=== PATIENT | male | born 1965 | race Caucasian/White ===

== ENCOUNTER 2020-06-24 11:48 | Emergency (ER) | payer MEDICAID, SELFPAY ==
[2020-06-24 14:20] VITALS: BP 163/91; PULSE 92; RESP 18; TEMP 37; O2SAT 97; BMI 24.3
--- NOTE | 2020-06-24 14:25 | XR_ITS ---
EXAMINATION: XR FOOT, LEFT CLINICAL INFORMATION: Infected diabetic ulcer medial side left foot COMPARISON: None TECHNIQUE: AP, lateral, and oblique views of the left foot. FINDINGS: There is soft tissue abnormality along the medial aspect of first MTP joint. No bony erosive changes or periosteal thickening. The ankle mortise and subtalar joints are normal. XR/XR foot LT min 3V IMPRESSION: Soft tissue swelling along the medial aspect of first MTP joint but no bony erosive changes or periosteal thickening to suspect osteomyelitis. There is no gas either to suspect any abscess in the soft tissues.
--- NOTE | 2020-06-24 14:28 | ED_ITS ---
HPI - General Adult General Chief complaint: General Medical Stated complaint: diabetic complications Time Seen by Provider: 06/24/20 14:17 Source: patient Mode of arrival: ambulatory Limitations: no limitations History of Present Illness HPI narrative: Patient comes to the emergency room complaining of left-sided foot ulcer. Patient states it started as a callus approximately 1 month ago, patient was in [place] and came back a few days ago when he returned. Patient states for the last 2 days the ulcer popped, has been oozing purulent foul-smelling material. Patient has not been seen by the wound clinic for this ulcer. Patient denies fever chills Onset (ago): day(s) Related Data Previous Rx's Medication Instructions Recorded cephalexin [Keflex] 500 mg PO BID #20 cap 06/24/20 doxycycline monohydrate 100 mg PO BID #20 cap 06/24/20 Allergies Allergy/AdvReac Type Severity Reaction Status Date / Time No Known Allergies Allergy Unverified 05/19/20 18:41 [No Known Allergies*] Review of Systems Review of Systems: Constitutional : No Weight loss, No Fever, No Chills, No Night Sweats, No Fatigue, No Malaise ENT/Mouth : No Hearing loss, No Ear Pain, No Nasal Congestion, No Sinus Pain, No Hoarseness, No sore throat, No Rhinorrhea, No Swallowing Difficulty Eyes: No Eye Pain, No Swelling, No Redness, No Foreign Body, No Discharge, No Vision Changes Cardiovascular : No Chest Pain, No SOB, No Dyspnea on Exertion, No Orthopnea, No Edema, No Palpitations Respiratory : No Cough, No Sputum, No Wheezing, No Smoke Exposure, No Dyspnea Gastrointestinal : No Nausea, No Vomiting, No Diarrhea, No Constipation, No abdominal Pain, No Hematochezia, No Melena Genitourinary : no irregular bleeding, No Dysuria, No Urinary Frequency, No Hematuria, No Urinary Incontinence, No Urgency, No Flank Pain, No Urinary Flow Changes, No Hesitancy Musculoskeletal : No joint pain, No Myalgias, No Joint Swelling Skin : purulent, foul-smelling ulcer on the medial aspect of the left Neuro : No Weakness, No Numbness, No Paresthesias, No Loss of Consciousness, No Dizziness, No Headache Psych : No Anxiety/Panic, No Depression, No SI/HI/AH/VH, No Social Issues, Heme/Lymph: No Bruising, No Bleeding,No Lymphadenopathy Endocrine : No Polyuria, No Polydipsia, No Temperature Intolerance [facility] Past Medical History Medical History Atherosclerotic heart disease [place] coronary artery w/angina pectoris BPH (benign prostatic hyperplasia) Chronic kidney disease (CKD) stage G2/A1, mildly decreased glomerular filtration rate (GFR) between 60-89 mL/min/1.73 square meter and albuminuria creatinine ratio less than 30 mg/g Dependence on respirator [ventilator] status Diverticulosis GERD (gastroesophageal reflux disease) Hypothyroid Polyneuropathy Proteinuria PVD (peripheral vascular disease) Type 2 diabetes mellitus Social History Social History Alcohol intake: never Smoked in Last 30 Days: No Use of substances other than those prescribed or required for medical reasons: No Advance Directives: No Advance Directives Information Provided: No Physical Exam Vital Signs: Vital Signs: Vital Signs Temp Pulse Resp BP Pulse Ox 06/24/20 15:56 97.9 F 89 18 158/86 H 98 06/24/20 14:20 98.6 F 92 18 163/91 H 97 Body Mass Index 24.3 Appearance: Alert. Oriented X3. No acute distress. Eyes: Pupils equal, round and reactive to light. ENT: Pharynx normal. Neck: Normal inspection. Neck supple. No lymph nodes noted. No crepitus CVS: Normal heart rate and rhythm. Pulses normal. Normal S1 and S2 Respiratory: No respiratory distress. Breath sounds normal. No Wheezing. No rales Abdomen: Soft and nontender. No rigidity. No distention. good BS x4 Skin: purulent, foul-smelling diabetic ulcer in the medial aspect of the left foot Extremities: see above, left foot with close to nonpitting edema Neuro: Oriented X 3. No motor deficit. No sensory deficit. Moving all extermities. No slurred speech. Course Course Course Narrative: I discussed the labs with the patient, patient will be referred to the wound clinic. Patient will be discharged on 2 antibiotics. Discussed with the patient that if he has any new symptoms, he needs to return to the emergency room. Patient's blood glucose is 413, he will be given insulin, point of care rechecked and improved, he will be discharged home sign out given to Dr. Mckeon Medical Decision Making Lab Data Result diagrams: 06/24/20 15:42 06/24/20 15:42 Labs: Lab Results 06/24/20 06/24/20 06/24/20 Range/Units 15:42 15:42 15:43 WBC 8.3 (4.8-10.8) X10*3/uL RBC 4.93 (4.60-5.80) X10*6/uL Hgb 13.4 L (14.0-18.0) g/dl Hct 40.9 L (42-52) % MCV 83.0 (80-98) fL MCH 27.2 (27.0-33.0) pg MCHC 32.8 (31.0-36.0) g/dl RDW 12.3 (11.0-16.0) % Plt Count 252 (160-400) X10*3/uL MPV 9.3 L (9.4-12.4) fL Immature Gran % (Auto) 0.5 H (0.0-0.4) % Neut % (Auto) 56.9 (45-73) % Lymph % (Auto) 33.8 (20-40) % [place] % (Auto) 6.4 (2-11) % Eos % (Auto) 2.0 (0-4) % Baso % (Auto) 0.4 (0-2) % Lymph # (Auto) 2.8 (1.2-4.9) X10*3/uL [place] # (Auto) 0.5 (0.1-1.2) X10*3/uL Eos # (Auto) 0.2 (0.0-0.4) X10*3/uL Baso # (Auto) 0.0 (0.0-0.2) X10*3/uL Abs Immat Gran (auto) 0.04 H (0.00-0.03) X10*3/uL Absolute Neuts (auto) 4.7 (2.0-8.3) X10*3/uL Absolute Nucleated RBC 0.000 (0.0-0.012) X10*3/uL Nucleated RBC % (auto) 0.0 (0.0-0.2) /100WBC Sodium 135 (135-145) mmol/L Potassium 4.7 (3.3-5.1) mmol/l Chloride 98 (96-108) mmol/L Carbon Dioxide 30 H (22-29) mmol/L Anion Gap 12 (12-20) BUN 20 H (9-16) mg/dL Creatinine 1.17 (0.5-1.4) mg/dL Estim Creat Clear Calc 69.0 Estimated GFR > 60 Random Glucose 413 H* (60-115) mg/dL Lactic Acid 0.9 (0.5-2.0) mmol/L Calcium 8.9 (8.4-10.2) mg/dL Discharge Plan Discharge Clinical Impression: Acute hyperglycemia Diabetic foot ulcer Qualifiers: Diabetic foot ulcer location: unspecified part of foot Diabetes mellitus type: type 2 Laterality: left Non-pressure ulcer stage: unspecified non-pressure ulcer stage Qualified Code(s): E11.621 - Type 2 diabetes mellitus with foot ulcer Patient Disposition: Home, Self-Care Instructions: Foot Care for People with Diabetes (ED), Diabetic Foot Ulcers (ED) Additional Instructions: please call the wound clinic to schedule an appointment. If you have any fever, worsening symptoms, any new symptoms, please return to the emergency room. Please follow-up with your primary care physician tomorrow. If you have any worsening or new symptoms, please return to the emergency room or call 911 Prescriptions: New doxycycline monohydrate 100 mg capsule 100 mg PO BID Qty: 20 RF: 0 cephalexin [Keflex] 500 mg capsule 500 mg PO BID Qty: 20 RF: 0
[2020-06-24 15:49] LABS: MANUAL DIFF FLAG NO
[2020-06-24 15:53] LABS: Basophils Percent Auto 0.4 % (0-2); Eosinophils Absolute Auto 0.2 X10*3/uL (0.0-0.4); Hematocrit 40.9 % (42-52); Hemoglobin 13.4 g/dl (14.0-18.0); Imm Gran Abs Auto 0.04 X10*3/uL (0.00-0.03); Imm Gran Pct Auto 0.5 % (0.0-0.4); Lymphocytes Absolute Auto 2.8 X10*3/uL (1.2-4.9); Lymphocytes Percent Auto 33.8 % (20-40); Mean Corpuscular HGB Conc 32.8 g/dl (31.0-36.0); Mean Corpuscular Hemoglobin 27.2 pg (27.0-33.0); Mean Platelet Volume 9.3 fL (9.4-12.4); Monocytes Absolute Auto 0.5 X10*3/uL (0.1-1.2); Monocytes Percent Auto 6.4 % (2-11); Neutrophils Absolute Auto 4.7 X10*3/uL (2.0-8.3); Neutrophils Percent Auto 56.9 % (45-73); Platelet Count 252 X10*3/uL (160-400); Red Blood Count 4.93 X10*6/uL (4.60-5.80); Red Cell Distribution Width 12.3 % (11.0-16.0); White Blood Count 8.3 X10*3/uL (4.8-10.8)
[2020-06-24 15:56] VITALS: BP 158/86; PULSE 89; RESP 18; TEMP 36.6; O2SAT 98
[2020-06-24] MEDS: 0.9 % Sodium Chloride 1,000 ML 999 ML IVCONT (16:12)
[2020-06-24] MEDS: Piperacillin Sodium/Tazobactam 3.375 GM in 0.9 % Sodium Chloride 50 ML IV (16:13)
[2020-06-24 16:26] LABS: Lactic Acid 0.9 mmol/L (0.5-2.0)
[2020-06-24 16:39] LABS: Glucose Random 413 mg/dL (60-115)
[2020-06-24 16:40] LABS: Anion Gap 12 (12-20); Blood Urea Nitrogen 20 mg/dL (9-16); Calcium 8.9 mg/dL (8.4-10.2); Carbon Dioxide 30 mmol/L (22-29); Chloride 98 mmol/L (96-108); Estimated Glomerular Filt Rate > 60; Potassium 4.7 mmol/l (3.3-5.1); Sodium 135 mmol/L (135-145)
[2020-06-24 17:59] VITALS: PULSE 90; RESP 16; O2SAT 99
[2020-06-24] MEDS: Insulin Regular, Human 100 UNIT/ML 3 ML VIAL 10 UNIT IVPUSH (18:00)
[2020-06-24 18:51] LABS: Glucose, Whole Blood 247 mg/dL (60-115)
== END 2020-06-24 20:14 | disposition home or self-care (01) ==
PROVIDERS: Emergency Provider Emergency Medicine
DX: E11.621 Type 2 diabetes mellitus with foot ulcer (principal); E11.22 Type 2 diabetes mellitus with diabetic chronic kidney disease; E11.65 Type 2 diabetes mellitus with hyperglycemia; N18.2 Chronic kidney disease, stage 2 (mild)
CPT/HCPCS: 36415; 73630; 80048; 82947; 83605; 85025; 87040; 96365; 96375; 99284

== ENCOUNTER 2021-07-24 16:51 | Emergency (ER) | payer OTHER, SELFPAY ==
--- NOTE | ~2021-07-24 | CT_ITS ---
EXAMINATION: CT ABDOMEN AND PELVIS WITH CONTRAST CLINICAL INFORMATION: Left lower quadrant and suprapubic pain COMPARISON: Ultrasound abdomen 12/06/2014 TECHNIQUE: Multidetector volumetric images were obtained from the superior aspect of the liver through the pubic symphysis following administration 85 mL of Omnipaque 350 intravenous contrast. Sagittal and coronal reformatted images were obtained on the technologist's workstation. Oral contrast: No This CT examination was performed using dose optimization techniques as appropriate, variously including the following: *Automated exposure control *Adjustment of mA and/or kV according to patient size (this includes techniques or standardized protocols for targeted exams where dose is matched to indication/reason for exam; i.e. extremities or head) *Use of iterative reconstruction technique DLP : 622 mGy-cm FINDINGS: LUNG BASES: The visualized lung bases are unremarkable. LIVER, GALLBLADDER, AND BILIARY TREE: The liver is normal in size, shape, and attenuation. No focal hepatic lesion or biliary ductal dilatation is present. The gallbladder is unremarkable with no evidence of radiopaque gallstones, gallbladder wall thickening, or obvious pericholecystic inflammatory changes. PANCREAS: Unremarkable. SPLEEN: Unremarkable. ADRENAL GLANDS: Unremarkable. KIDNEYS AND URETERS: The kidneys are normal in size, shape, and attenuation. Bilateral benign Bosniak class I renal cysts are present. No solid renal masses are seen. No hydronephrosis, hydroureter, or calculi seen. No perinephric stranding. BLADDER: Unremarkable. GASTROINTESTINAL TRACT: A tiny hiatal hernia is present. Colonic diverticular changes most prominent in the sigmoid without diverticulitis. Moderate stool burden is present in the right colon as well as the rectum. The small and large bowel are otherwise unremarkable. The appendix is none seen but there is no evidence of appendicitis. ABDOMINAL WALL: No significant hernia is appreciated. LYMPH NODES: No retroperitoneal lymphadenopathy. VASCULAR: Unremarkable. PELVIC VISCERA: Prostate and seminal vesicles are unremarkable. OSSEOUS STRUCTURES: Unremarkable. CT/CT abdomen pelvis w con IMPRESSION: A definite etiology for the patient's left lower quadrant/suprapubic pain has not been found. Incidental findings described above. Fleischner guidelines were followed.
--- NOTE | 2021-07-24 17:08 | ECG_ITS ---
Test Reason : ABDOMINAL PAIN Blood Pressure : / mmHG Vent. Rate : 084 BPM Atrial Rate : 084 BPM P-R Int : 136 ms QRS Dur : 080 ms QT Int : 348 ms P-R-T Axes : 030 -13 070 degrees QTc Int : 411 ms Normal sinus rhythm Minimal voltage criteria for LVH, may be normal variant ( R in aVL ) Nonspecific T wave abnormality Abnormal ECG T wave inversion no longer evident in Anterolateral leads Referred By: Belinda Bowens Electronically Signed By:MADHAV GAONA MD
[2021-07-24 17:14] VITALS: BP 147/76; BP 164/94; PULSE 90; PULSE 92; RESP 16; TEMP 36.8; O2SAT 100; O2SAT 97; BMI 25.8
--- NOTE | 2021-07-24 17:14 | ED.ABDPAIN ---
HPI - Abdominal Pain General Chief Complaint: Abdominal Pain Stated Complaint: ABD PAIN Time Seen by Provider: 07/24/21 17:08 Source: patient Mode of arrival: ambulatory Limitations: no limitations History of Present Illness HPI narrative: This is a 56-year-old past medical history significant for BPH, CKD, CAD, PVD, GERD, diabetes presenting to the emergency department with 3 days of progressively worsening left lower quadrant, and suprapubic abdominal pain with associated nausea. Patient states that he has felt this pain before, last time he had this is diverticulitis. Patient also tells me that he has not had a bowel movement for 3 days, he usually has daily bowel movements. He feels as though his abdomen is distended, more than usual. He tells me he has been passing flatness but very little. He also reports decreased appetite. He states that the pain has gotten very severe, and constant in nature, he describes it as sharp pain. It does not radiate. He denies urinary changes, dysuria, urinary incontinence, back pain, chest pain, shortness of breath, fevers, chills, recent sick contacts. Patient's abdominal surgical history significant for an appendectomy when he was a child, no other abdominal surgeries. MD elicited complaint: abdominal pain Pertinent past history: diverticulitis Onset (ago): day(s) (3) Pain Consistency: constant Location: LLQ and suprapubic Severity: severe Pain scale (0-10): 10 Quality: sharp Radiation: none Migration to: no migration Exacerbating factors: nothing Relieving factors: nothing Associated symptoms: nausea Related Data Previous Rx's Medication Instructions Recorded cephalexin 500 mg capsule (Keflex) 500 mg PO BID #20 cap 06/24/20 doxycycline monohydrate 100 mg 100 mg PO BID #20 cap 06/24/20 capsule polyethylene glycol 3350 17 17 g PO DAILY #119 g 07/24/21 gram/dose oral powder (Miralax) Allergies Allergy/AdvReac Type Severity Reaction Status Date / Time No Known Allergies Allergy Verified 07/24/21 17:16 [No Known Allergies*] Review of Systems Review of Systems Constitutional : No Weight loss, No Fever, No Chills, No Fatigue, No Malaise ENT/Mouth : No sore throat, No Rhinorrhea Eyes: No Eye Pain, No Swelling, No Redness Cardiovascular : No Chest Pain, No SOB, No Dyspnea on Exertion, No Orthopnea, No Edema, No Palpitations Respiratory : No Cough, No Sputum, No Wheezing Gastrointestinal : + Nausea, No Vomiting, No Diarrhea, + Constipation, + abdominal Pain, No Hematochezia, No Melena Genitourinary : No Dysuria, No Urinary Frequency, No Hematuria, Musculoskeletal : No joint pain, No Myalgias, No Joint Swelling Skin : No Skin Lesions, No rash Neuro : No Weakness, No Numbness, No Dizziness, No Headache All other systems reviewed and are negative Physical Exam Vital Signs: Vital Signs: Last Vital Signs Temp 98.4 F 07/24/21 20:51 Pulse 89 07/24/21 20:51 Resp 18 07/24/21 20:51 BP 146/80 H 07/24/21 20:51 Pulse Ox 97 07/24/21 20:51 Body Mass Index 25.8 Appearance: Alert.? Oriented X3.? No acute distress.? Head: Normocephalic, atraumatic, no step-offs or deformities Eyes: Pupils equal, round and reactive to light.? ENT: Pharynx normal.? Neck: Normal inspection.? Neck supple.? CVS: Normal heart rate and rhythm.? Pulses normal.? Respiratory: No respiratory distress.? Breath sounds normal.? Abdomen: Soft, mildly distend, + tenderness to LLQ and suprapubic region Normoactive bowelsounds .? Skin: Skin warm and dry.? Normal skin color.? Normal skin turgor.? Extremities: No lower extremity edema.? No calf ttp. 5/5 strength to bilateral upper and lower extremities Back: No midline tenderness, no C-spine tenderness, full range of motion, no CVA tenderness bilaterally Neuro: Oriented X 3.? No motor deficit.? No sensory deficit. Course Reevaluation(s) Reevaluation #1: Labs show no leukocytosis, baseline anemia is noted. BUN is noted to be slightly elevated 27 when compared to previously 20 on June 24, 2021. Patient will be given fluids. Acetone is negative. Unlikely that this is DKA. Serology negative for COVID-19.CT scan pending Upon reevaluation patient reports he feels much better. Time: 19:07 Reevaluation #2: CT of the abdomen unable to define an etiology for patient's left lower quadrant/supra pubic discomfort. CT did note some incidental finding such as bilateral benign Bosniak class 1 renal cyst. They also noted a small hiatal hernia, colonic diverticular changes, not consistent with diverticulitis. And a moderate stool burden. Appendix was not seen, but there is no evidence of appendicitis. Patient's symptoms are likely secondary to constipation. At this time I will order Colace,Ehrhardt and MiraLax as patient has not taken anything at home for this. Time: 19:50 Reevaluation #3: Patient tells me he is feeling much better. He is safe for discharge home with PCP follow-up. At time of discharge put patient's vital signs are stable Time: 21:29 MDM - Abdominal Pain MDM Narrative Medical decision making narrative: 1720 This is a 56-year-old male past medical history significant for PVD, GERD, diabetes, coronary artery disease, BPH presenting to the emergency department with 3 days of progressively worsening left lower quadrant, suprapubic pain, nausea and constipation. Patient tells me he has been passing flatus. Past surgical history significant for appendectomy years ago. Denies fevers, chills, vomiting, chest pain, shortness of breath Upon physical examination patient is resting comfortably on the stretcher. Vital signs stable, noted to be slightly hypertensive. Lungs are clear to auscultation. S1-S2 appreciated free of murmurs. Abdomen soft, slightly distended, normoactive bowel sounds and tender to palpation in the left lower quadrant and suprapubic region. No CVA tenderness bilaterally. 5/5 strength upper and lower extremities. No lower extremity edema. Plan at this time is to obtain basic labs, urine, CT of the abdomen and pelvis, EKG, point of care, acetone, lipase, COVID. Will rule out DKA, diverticulitis, kidney stones, constipation, bowel obstruciton. Lab Data Result diagrams: 07/24/21 17:33 07/24/21 17:33 Labs: Lab Results 07/24/21 07/24/21 07/24/21 Range/Units 17:33 17:33 17:33 WBC 9.0 (4.8-10.8) X10*3/uL RBC 4.65 (4.60-5.80) X10*6/uL Hgb 13.2 L (14.0-18.0) g/dl Hct 39.7 L (42.0-52.0) % MCV 85.4 (80.0-98.0) fL MCH 28.4 (27.0-33.0) pg MCHC 33.2 (31.0-36.0) g/dl RDW 12.9 (11.0-16.0) % Plt Count 217 (160-400) X10*3/uL MPV 9.3 L (9.4-12.4) fL Immature Gran % (Auto) 0.3 (0.0-0.4) % Neut % (Auto) 64.8 (45-73) % Lymph % (Auto) 26.4 (20-40) % [place] % (Auto) 6.2 (2-11) % Eos % (Auto) 1.9 (0-4) % Baso % (Auto) 0.4 (0-2) % Lymph # (Auto) 2.4 (1.2-4.9) X10*3/uL [place] # (Auto) 0.6 (0.1-1.2) X10*3/uL Eos # (Auto) 0.2 (0.0-0.4) X10*3/uL Baso # (Auto) 0.0 (0.0-0.2) X10*3/uL Abs Immat Gran (auto) 0.03 (0.00-0.03) X10*3/uL Absolute Neuts (auto) 5.9 (2.0-8.3) x10*3/uL Absolute Nucleated RBC 0.000 (0.0-0.012) X10*3/uL Nucleated RBC % (auto) 0.0 (0.0-0.2) /100WBC Sodium 140 (135-145) mmol/L Potassium 4.2 (3.3-5.1) mmol/L Chloride 106 (96-108) mmol/L Carbon Dioxide 26 (22-29) mmol/L Anion Gap 12 (12-20) BUN 27 H (9-16) mg/dL Creatinine 0.99 (0.5-1.4) mg/dL Estim Creat Clear Calc 80.6 Estimated GFR > 60 Random Glucose 141 H D (60-115) mg/dL Calcium 9.7 D (8.4-10.2) mg/dL Magnesium 1.9 (1.6-2.6) mg/dL Total Bilirubin 0.4 (0.0-1.0) mg/dL AST 20 (5-37) U/L ALT 25 (0-40) U/L Alkaline Phosphatase 105 (39-117) U/L Total Protein 7.2 (6.5-8.0) g/dL Albumin 4.3 (3.5-5.0) g/dL Lipase 21 (8-78) U/L Acetone, Qual (Negative) COVID-19 ([facility]) Negative (Negative) COVID-19 Clin Com See Note 07/24/21 Range/Units 17:33 WBC (4.8-10.8) X10*3/uL RBC (4.60-5.80) X10*6/uL Hgb (14.0-18.0) g/dl Hct (42.0-52.0) % MCV (80.0-98.0) fL MCH (27.0-33.0) pg MCHC (31.0-36.0) g/dl RDW (11.0-16.0) % Plt Count (160-400) X10*3/uL MPV (9.4-12.4) fL Immature Gran % (Auto) (0.0-0.4) % Neut % (Auto) (45-73) % Lymph % (Auto) (20-40) % [place] % (Auto) (2-11) % Eos % (Auto) (0-4) % Baso % (Auto) (0-2) % Lymph # (Auto) (1.2-4.9) X10*3/uL [place] # (Auto) (0.1-1.2) X10*3/uL Eos # (Auto) (0.0-0.4) X10*3/uL Baso # (Auto) (0.0-0.2) X10*3/uL Abs Immat Gran (auto) (0.00-0.03) X10*3/uL Absolute Neuts (auto) (2.0-8.3) x10*3/uL Absolute Nucleated RBC (0.0-0.012) X10*3/uL Nucleated RBC % (auto) (0.0-0.2) /100WBC Sodium (135-145) mmol/L Potassium (3.3-5.1) mmol/L Chloride (96-108) mmol/L Carbon Dioxide (22-29) mmol/L Anion Gap (12-20) BUN (9-16) mg/dL Creatinine (0.5-1.4) mg/dL Estim Creat Clear Calc Estimated GFR Random Glucose (60-115) mg/dL Calcium (8.4-10.2) mg/dL Magnesium (1.6-2.6) mg/dL Total Bilirubin (0.0-1.0) mg/dL AST (5-37) U/L ALT (0-40) U/L Alkaline Phosphatase (39-117) U/L Total Protein (6.5-8.0) g/dL Albumin (3.5-5.0) g/dL Lipase (8-78) U/L Acetone, Qual Negative (Negative) COVID-19 ([facility]) (Negative) COVID-19 Clin Com Critical Care Time Critical Care Time Critical Care Time: No Discharge Plan Discharge Clinical Impression: Abdominal pain, Nausea, Constipation, Renal cyst, Hiatal hernia Patient Disposition: Home, Self-Care Instructions: Hiatal Hernia (ED), Constipation (ED), Acute Abdominal Pain (ED), Abdominal Pain (ED) Additional Instructions: Take your medications as prescribed. Your CT scan showed bilateral benign renal cysts and colonic diverticular changes but not diverticulitis. Take Colace an over the counter medicine as needed for constipation. Drink plenty of fluids and increase fiber intake. Follow-up with your primary care provider this week. Return to the emergency department with new or worsening symptoms. In case of emergency call 911 Prescriptions: New polyethylene glycol 3350 [Miralax] 17 gram/dose powder 17 g PO DAILY Qty: 119 RF: 0 No Action doxycycline monohydrate 100 mg capsule 100 mg PO BID Qty: 20 RF: 0 cephalexin [Keflex] 500 mg capsule 500 mg PO BID Qty: 20 RF: 0 Referrals: Physician,Unknown J [Primary Care Provider] - 2 days Stand Alone Forms: Work/School Release Print Language: Serbian [facility] Past Medical History Attestation statement: The following information was validated with the patient. Source: old records reviewed and nursing notes reviewed Medical History Atherosclerotic heart disease [place] coronary artery w/angina pectoris BPH (benign prostatic hyperplasia) Chronic kidney disease (CKD) stage G2/A1, mildly decreased glomerular filtration rate (GFR) between 60-89 mL/min/1.73 square meter and albuminuria creatinine ratio less than 30 mg/g Dependence on respirator [ventilator] status Diverticulosis GERD (gastroesophageal reflux disease) Hypothyroid Polyneuropathy Proteinuria PVD (peripheral vascular disease) Type 2 diabetes mellitus Social History Social History Alcohol intake: never Patient Tobacco Use Status: Never used Tobacco Use of substances other than those prescribed or required for medical reasons: No Advance Directives: No Advance Directives Information Provided: No
[2021-07-24 17:38] LABS: MANUAL DIFF FLAG NO
[2021-07-24] MEDS: 0.9 % Sodium Chloride 1,000 ML 999 ML IV (17:39)
[2021-07-24] MEDS: Ketorolac Tromethamine 15 MG/ML VIAL 30 MG IVPUSH (17:39)
[2021-07-24] MEDS: ondansetron HCL 4 MG/2 ML VIAL IVPUSH (17:39)
[2021-07-24 17:40] LABS: Basophils Percent Auto 0.4 % (0-2); Eosinophils Absolute Auto 0.2 X10*3/uL (0.0-0.4); Eosinophils Percent Auto 1.9 % (0-4); Hematocrit 39.7 % (42.0-52.0); Hemoglobin 13.2 g/dl (14.0-18.0); Imm Gran Abs Auto 0.03 X10*3/uL (0.00-0.03); Imm Gran Pct Auto 0.3 % (0.0-0.4); Lymphocytes Absolute Auto 2.4 X10*3/uL (1.2-4.9); Lymphocytes Percent Auto 26.4 % (20-40); Mean Corpuscular HGB Conc 33.2 g/dl (31.0-36.0); Mean Corpuscular Hemoglobin 28.4 pg (27.0-33.0); Mean Corpuscular Volume 85.4 fL (80.0-98.0); Mean Platelet Volume 9.3 fL (9.4-12.4); Monocytes Absolute Auto 0.6 X10*3/uL (0.1-1.2); Monocytes Percent Auto 6.2 % (2-11); Neutrophils Absolute Auto 5.9 x10*3/uL (2.0-8.3); Neutrophils Percent Auto 64.8 % (45-73); Platelet Count 217 X10*3/uL (160-400); Red Blood Count 4.65 X10*6/uL (4.60-5.80); Red Cell Distribution Width 12.9 % (11.0-16.0)
[2021-07-24 17:55] LABS: COVID-19 Test Negative (Negative); IDNOW Serial# 08D9AD1C
[2021-07-24 18:00] LABS: Acetone, serum QL Negative (Negative); Alanine Aminotransferase 25 U/L (0-40); Albumin Level 4.3 g/dL (3.5-5.0); Alkaline Phosphatase 105 U/L (39-117); Anion Gap 12 (12-20); Aspartate Amino Transferase 20 U/L (5-37); Bilirubin Total 0.4 mg/dL (0.0-1.0); Blood Urea Nitrogen 27 mg/dL (9-16); Calcium 9.7 mg/dL (8.4-10.2); Carbon Dioxide 26 mmol/L (22-29); Chloride 106 mmol/L (96-108); Creatinine Clr Calc Pharmacy 80.6; Estimated Glomerular Filt Rate > 60; Glucose Random 141 mg/dL (60-115); Lipase 21 U/L (8-78); Magnesium 1.9 mg/dL (1.6-2.6); Potassium 4.2 mmol/L (3.3-5.1); Sodium 140 mmol/L (135-145); Total Protein 7.2 g/dL (6.5-8.0)
[2021-07-24] MEDS: iohexoL 350 MG/ML 100 ML INFUS..BTL IV (18:40)
[2021-07-24] MEDS: polyethylene glycoL 3350 17 GM POWD.PACK PO (20:49)
[2021-07-24] MEDS: Docusate Sodium 100 MG CAPSULE PO (20:49)
[2021-07-24] MEDS: Sennosides 8.6 MG TABLET 17.2 MG PO (20:49)
[2021-07-24 20:51] VITALS: BP 146/80; PULSE 89; RESP 18; TEMP 36.9; O2SAT 97
== END 2021-07-24 22:01 | disposition home or self-care (01) ==
PROVIDERS: Physician Assistant; Emergency Provider Emergency Medicine
DX: Q61.02 Congenital multiple renal cysts (principal); K44.9 Diaphragmatic hernia without obstruction or gangrene; R10.32 Left lower quadrant pain; K59.00 Constipation, unspecified; R11.0 Nausea; Z20.822 Contact with and (suspected) exposure to COVID-19; E11.22 Type 2 diabetes mellitus with diabetic chronic kidney disease; N18.2 Chronic kidney disease, stage 2 (mild)
CPT/HCPCS: 36415; 74177; 80053; 82009; 83690; 83735; 85025; 87635; 93005; 96361; 96374; 96375; 99285; J1885; J2405; Q9967

== ENCOUNTER 2021-08-30 11:28 | Outpatient (REF) | payer OTHER, SELFPAY ==
[2021-08-30 14:14] LABS: COVID-19 Test Negative (Negative)
== END 2021-08-30 11:29 | disposition home or self-care (01) ==
LOC: HO.LAB 11:28
PROVIDERS: Visit Provider Internal Medicine
DX: Z20.822 Contact with and (suspected) exposure to COVID-19 (principal)
CPT/HCPCS: 36415; 87635; C9803

== ENCOUNTER 2021-09-11 12:58 | Outpatient (REF) | payer OTHER, SELFPAY ==
[2021-09-11 15:07] LABS: Binax Now Covid-19 Ag Negative (Negative)
[2021-09-11 15:08] LABS: Binax Internal Control QC Valid
== END 2021-09-11 12:59 | disposition home or self-care (01) ==
LOC: HO.LAB 12:58
PROVIDERS: Visit Provider Internal Medicine
DX: Z20.822 Contact with and (suspected) exposure to COVID-19 (principal)
CPT/HCPCS: 36415; C9803

== ENCOUNTER 2022-01-02 11:32 | Emergency (ER) | payer OTHER, SELFPAY ==
--- NOTE | ~2022-01-02 | CT_ITS ---
EXAMINATION: CT HEAD WITHOUT CONTRAST CLINICAL INFORMATION: New onset of headache COMPARISON: CT head 08/18/2017 TECHNIQUE: Contiguous axial imaging was performed from the skull base to vertex without intravenous administration of contrast. Coronal and sagittal reformatted images are performed at CT scanner This CT examination was performed using dose optimization techniques as appropriate, variously including the following: *Automated exposure control *Adjustment of mA and/or kV according to patient size (this includes techniques or standardized protocols for targeted exams where dose is matched to indication/reason for exam; i.e. extremities or head) *Use of iterative reconstruction technique DLP: 699 mGy-cm FINDINGS: There is no evidence of acute intracranial hemorrhage or territorial infarction. No abnormal mass effect or midline shift is seen. [place] to white matter differentiation is well preserved. No extra-axial fluid collections are identified. The ventricles are normal in size. There is no abnormal attenuation within the brain parenchyma. The osseous structures and soft tissues are normal. The mastoid air cells and visualized portions of the paranasal sinuses are well aerated. CT/CT head/brain wo con IMPRESSION: No acute intracranial pathology.
[2022-01-02 12:16] VITALS: BP 127/79; PULSE 100; RESP 18; TEMP 36.7; O2SAT 97; BMI 29.3
[2022-01-02 12:31] LABS: MANUAL DIFF FLAG NO
[2022-01-02 12:34] LABS: Basophils Percent Auto 0.3 % (0-2); Eosinophils Absolute Auto 0.2 X10*3/uL (0.0-0.4); Eosinophils Percent Auto 1.3 % (0-4); Hemoglobin 15.6 g/dl (14.0-18.0); Imm Gran Abs Auto 0.06 X10*3/uL (0.00-0.03); Imm Gran Pct Auto 0.5 % (0.0-0.4); Lymphocytes Absolute Auto 2.9 X10*3/uL (1.2-4.9); Lymphocytes Percent Auto 24.6 % (20-40); Mean Corpuscular HGB Conc 32.5 g/dl (31.0-36.0); Mean Corpuscular Hemoglobin 27.6 pg (27.0-33.0); Mean Platelet Volume 9.8 fL (9.4-12.4); Monocytes Absolute Auto 0.7 X10*3/uL (0.1-1.2); Neutrophils Absolute Auto 7.8 x10*3/uL (2.0-8.3); Neutrophils Percent Auto 67.3 % (45-73); Platelet Count 268 X10*3/uL (160-400); Red Blood Count 5.65 X10*6/uL (4.60-5.80); White Blood Count 11.6 X10*3/uL (4.8-10.8)
[2022-01-02 12:50] LABS: Anion Gap 17 (12-20); Blood Urea Nitrogen 32 mg/dL (9-16); Calcium 10.8 mg/dL (8.4-10.2); Carbon Dioxide 30 mmol/L (22-29); Chloride 93 mmol/L (96-108); Estimated Glomerular Filt Rate 42; Potassium 5.5 mmol/L (3.3-5.1); Sodium 134 mmol/L (135-145)
[2022-01-02 13:02] LABS: Glucose Random 454 mg/dL (60-115)
--- NOTE | 2022-01-02 17:38 | ED_ITS ---
HPI - General Adult General Chief complaint: General Medical Stated complaint: Eye pain radiating to ear Time Seen by Provider: 01/02/22 17:38 Source: patient Mode of arrival: ambulatory Limitations: no limitations History of Present Illness HPI narrative: Patient diabetic with diabetic retinopathy complaining of left-sided headache for last 5 days seen his eye doctor who checked his eyes pressure was normal patient denied any for nausea/vomiting no fever never had similar headache in the past headache feels throbbing deep pain with light sensitivity no visual changes Related Data Previous Rx's Medication Instructions Recorded cephalexin 500 mg capsule (Keflex) 500 mg PO BID #20 cap 06/24/20 doxycycline monohydrate 100 mg 100 mg PO BID #20 cap 06/24/20 capsule polyethylene glycol 3350 17 17 g PO DAILY #119 g 07/24/21 gram/dose oral powder (Miralax) [id number]-ixamswrtbsqdk-ovpfmhyo 1 cap PO Q6H PRN #20 cap 01/02/22 50 mg-300 mg-40 mg capsule (Fioricet) Allergies Allergy/AdvReac Type Severity Reaction Status Date / Time No Known Allergies Allergy Verified 01/02/22 12:16 [No Known Allergies*] Review of Systems Review of Systems: Yes all other systems are reviewed and are negative PMFSH Past Medical History Medical History Atherosclerotic heart disease [place] coronary artery w/angina pectoris BPH (benign prostatic hyperplasia) Chronic kidney disease (CKD) stage G2/A1, mildly decreased glomerular filtration rate (GFR) between 60-89 mL/min/1.73 square meter and albuminuria creatinine ratio less than 30 mg/g Dependence on respirator [ventilator] status Diverticulosis GERD (gastroesophageal reflux disease) Hypothyroid Polyneuropathy Proteinuria PVD (peripheral vascular disease) Type 2 diabetes mellitus Social History Social History Alcohol intake: never Patient Tobacco Use Status: Never used Tobacco Advance Directives: No Advance Directives Information Provided: Yes Physical Exam ED Vital Signs: Vital Signs - 24 hr 01/02/22 12:16 01/02/22 20:01 Temperature 98.1 F 98 F Pulse Rate 100 97 Respiratory Rate 18 18 Blood Pressure 127/79 153/82 H Pulse Oximetry 97 94 BMI result Body Mass Index 29.3 Appearance: Alert. Oriented X3. No acute distress. Eyes: PERRLA, No Nystagmus IOP 21 in the left eye 22 on the right eye normal visual dawson ENT: Pharynx normal. Oral Mucosa moist Tm intact B/l Neck: Normal inspection. Neck supple. CVS: Normal heart rate and rhythm. Pulses normal. Respiratory: No respiratory distress. Equal air entry bilateral, no wheezing/rales/rhonchi Abdomen: Soft and nontender. Bowel sounds are present, no mass palpable, no CVA tenderness Skin: Skin warm and dry. Normal skin color. Normal skin turgor. Extremities: No lower extremity edema. No calf tenderness Neuro: Oriented X 3. No motor deficit. No sensory deficit.No cerebellar signs , cranial nerves II-XII intact Medical Decision Making MDM Narrative Medical decision making narrative: Patient nonspecific left-sided headache likely atypical migraine CT scan head is negative lab workup initiated showed elevated glucose because patient did not take his insulin while waiting in the waiting area after hydration blood sugar improved and labs also improved initial creatinine was 1.7 with potassium 5.5 and blood sugar was 454 as he missed his insulin while waiting in the waiting area for hydration blood sugar did decrease to 242 and creatinine improved to 1.28 and potassium to 4.3 20;30 patient headache improved after Toradol will discharge patient home on Fioricet Lab Data Lab results reviewed: Yes I reviewed the patient's lab results. Result diagrams: 01/02/22 12:26 01/02/22 19:23 Labs: Lab Results 01/02/22 01/02/22 01/02/22 Range/Units 12:26 12:26 18:12 WBC 11.6 H (4.8-10.8) X10*3/uL RBC 5.65 D (4.60-5.80) X10*6/uL Hgb 15.6 (14.0-18.0) g/dl Hct 48.0 D (42.0-52.0) % MCV 85.0 (80.0-98.0) fL MCH 27.6 (27.0-33.0) pg MCHC 32.5 (31.0-36.0) g/dl RDW 13.0 (11.0-16.0) % Plt Count 268 (160-400) X10*3/uL MPV 9.8 (9.4-12.4) fL Immature Gran % (Auto) 0.5 H (0.0-0.4) % Neut % (Auto) 67.3 (45-73) % Lymph % (Auto) 24.6 (20-40) % [place] % (Auto) 6.0 (2-11) % Eos % (Auto) 1.3 (0-4) % Baso % (Auto) 0.3 (0-2) % Lymph # (Auto) 2.9 (1.2-4.9) X10*3/uL [place] # (Auto) 0.7 (0.1-1.2) X10*3/uL Eos # (Auto) 0.2 (0.0-0.4) X10*3/uL Baso # (Auto) 0.0 (0.0-0.2) X10*3/uL Abs Immat Gran (auto) 0.06 H (0.00-0.03) X10*3/uL Absolute Neuts (auto) 7.8 (2.0-8.3) x10*3/uL Absolute Nucleated RBC 0.000 (0.0-0.012) X10*3/uL Nucleated RBC % (auto) 0.0 (0.0-0.2) /100WBC Sodium 134 L (135-145) mmol/L Potassium 5.5 H D (3.3-5.1) mmol/L Chloride 93 L (96-108) mmol/L Carbon Dioxide 30 H (22-29) mmol/L Anion Gap 17 (12-20) BUN 32 H (9-16) mg/dL Creatinine 1.70 H (0.5-1.4) mg/dL Estim Creat Clear Calc 49.0 Estimated GFR 42 POC Glucose 260 H (60-115) mg/dL Random Glucose 454 H* (60-115) mg/dL Calcium 10.8 H D (8.4-10.2) mg/dL 01/02/22 Range/Units 19:23 WBC (4.8-10.8) X10*3/uL RBC (4.60-5.80) X10*6/uL Hgb (14.0-18.0) g/dl Hct (42.0-52.0) % MCV (80.0-98.0) fL MCH (27.0-33.0) pg MCHC (31.0-36.0) g/dl RDW (11.0-16.0) % Plt Count (160-400) X10*3/uL MPV (9.4-12.4) fL Immature Gran % (Auto) (0.0-0.4) % Neut % (Auto) (45-73) % Lymph % (Auto) (20-40) % [place] % (Auto) (2-11) % Eos % (Auto) (0-4) % Baso % (Auto) (0-2) % Lymph # (Auto) (1.2-4.9) X10*3/uL [place] # (Auto) (0.1-1.2) X10*3/uL Eos # (Auto) (0.0-0.4) X10*3/uL Baso # (Auto) (0.0-0.2) X10*3/uL Abs Immat Gran (auto) (0.00-0.03) X10*3/uL Absolute Neuts (auto) (2.0-8.3) x10*3/uL Absolute Nucleated RBC (0.0-0.012) X10*3/uL Nucleated RBC % (auto) (0.0-0.2) /100WBC Sodium 138 (135-145) mmol/L Potassium 4.3 D (3.3-5.1) mmol/L Chloride 101 (96-108) mmol/L Carbon Dioxide 27 (22-29) mmol/L Anion Gap 14 (12-20) BUN 29 H (9-16) mg/dL Creatinine 1.28 (0.5-1.4) mg/dL Estim Creat Clear Calc 65.1 Estimated GFR 58 POC Glucose (60-115) mg/dL Random Glucose 242 H D (60-115) mg/dL Calcium 9.8 D (8.4-10.2) mg/dL Discharge Plan Discharge Clinical Impression: Migraine Patient Disposition: Home, Self-Care Instructions: Migraine Headache (ED) Additional Instructions: Take medication for headache as prescribed Follow with PCP if not better Prescriptions: New ofmpjvsxxj-chioracwrqwzc-sqpx [Fioricet] 50-300-40 mg capsule 1 cap PO Q6H PRN (Reason: headache) Qty: 20 0RF No Action doxycycline monohydrate 100 mg capsule 100 mg PO BID Qty: 20 0RF cephalexin [Keflex] 500 mg capsule 500 mg PO BID Qty: 20 0RF polyethylene glycol 3350 [Miralax] 17 gram/dose powder 17 g PO DAILY Qty: 119 0RF
[2022-01-02] MEDS: 0.9 % Sodium Chloride 1,000 ML 999 ML IV (18:14)
[2022-01-02 18:17] LABS: Glucose, Whole Blood 260 mg/dL (60-115)
[2022-01-02 20:01] VITALS: BP 153/82; PULSE 97; RESP 18; TEMP 36.6; O2SAT 94
[2022-01-02 20:05] LABS: Anion Gap 14 (12-20); Blood Urea Nitrogen 29 mg/dL (9-16); Calcium 9.8 mg/dL (8.4-10.2); Carbon Dioxide 27 mmol/L (22-29); Chloride 101 mmol/L (96-108); Creatinine Clr Calc Pharmacy 65.1; Estimated Glomerular Filt Rate 58; Glucose Random 242 mg/dL (60-115); Potassium 4.3 mmol/L (3.3-5.1); Sodium 138 mmol/L (135-145)
[2022-01-02] MEDS: Ketorolac Tromethamine 30 MG/ML VIAL IVPUSH (20:11)
== END 2022-01-02 20:37 | disposition home or self-care (01) ==
PROVIDERS: Emergency Provider Internal Medicine; PCP Nurse Practitioner Family
DX: G43.909 Migraine, unspecified, not intractable, without status migrainosus (principal); E11.319 Type 2 diabetes mellitus with unspecified diabetic retinopathy without macular edema; Z79.899 Other long term (current) drug therapy
CPT/HCPCS: 36415; 70450; 80048; 82947; 85025; 96361; 96374; 99284; J1885

== ENCOUNTER 2023-02-16 16:36 | Emergency (ER) | payer OTHER, SELFPAY ==
--- NOTE | ~2023-02-16 | XR_ITS ---
EXAMINATION: XR WRIST, RIGHT CLINICAL INFORMATION: Pain. COMPARISON: None available. TECHNIQUE: Four views of the right wrist. FINDINGS: Equivocal very subtle cortical irregularity in the ulnar styloid. No subluxation. Negative ulnar variance with mild degenerative osteoarthritis of the radiocarpal joint. No erosions or chondrocalcinosis. Scattered atherosclerotic disease. Diffuse nonspecific soft tissue thickening, slightly more prominent adjacent to the distal ulna. XR/XR wrist RT 2V IMPRESSION: 1. Equivocal very subtle cortical irregularity in the ulnar styloid that could represent a nondisplaced fracture, correlate for point tenderness. 2. Negative ulnar variance variance with mild associated degenerative osteoarthritis of the radiocarpal joint. 3. Nonspecific soft tissue thickening, slightly more prominent adjacent to the distal ulna.
--- NOTE | 2023-02-16 16:41 | ED.GENADULT ---
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 per patient he went to [facility] ER and was seen. had normal x-rays. He has had continued symptoms but has not followed up with his primary care doctor. He does report some numbness and tingling over the some of the digits but reports is chronic and is not new. He denies any new injury or trauma. He denies any redness or warmth of the extremity. No fevers, chills Related Data Previous Rx's Medication Instructions Recorded cephalexin 500 mg capsule (Keflex) 500 mg PO BID #20 caps 06/24/20 doxycycline monohydrate 100 mg 100 mg PO BID #20 caps 06/24/20 capsule polyethylene glycol 3350 17 17 g PO DAILY #119 grams 07/24/21 gram/dose oral powder (Miralax) cbyjswvkdg-chxttqdntgpzw-bgysnmqr 1 cap PO Q6H PRN headache #20 caps 01/02/22 50 mg-300 mg-40 mg capsule (Fioricet) Allergies Allergy/AdvReac Type Severity Reaction Status Date / Time No Known Allergies Allergy Verified 02/16/23 16:42 [No Known Allergies*] Review of Systems Review of Systems: Yes all other systems are reviewed and are negative Constitutional: Constitutional: Reports no additional constitutional complaints, Denies body ache(s), Denies chills, Denies fever(s), Denies headache(s) and Denies weakness Eyes: Eyes: Reports no additional eye complaints and Denies change in vision ENT: Reports system reviewed and no additional complaints, except as documented, Denies dizziness, Denies headache(s), Denies nasal congestion, Denies nasal discharge and Denies neck pain Cardiovascular: Cardiovascular: Reports no additional cardiovascular complaints, Denies chest pain, Denies leg edema and Denies dyspnea Respiratory: Respiratory: Reports no additional respiratory complaints, Denies cough and Denies dyspnea Gastrointestinal: Gastrointestinal: Reports no additional gastrointestinal complaints, Denies abdominal pain, Denies diarrhea, Denies nausea and Denies vomiting Genitourinary: Genitourinary: Denies urinary incontinence Musculoskeletal: Musculoskeletal: Reports no additional musculoskeletal complaints, Denies back pain, Denies arthralgias, Reports joint swelling, Denies neck pain, Reports numbness and Denies tingling Integumentary/Breasts: Skin/Breast: Reports system reviewed and no additional complaints, except as docu and Denies rash Neurologic: Reports system reviewed and no additional complaints, except as documented, Denies dizziness, Denies headache(s), Reports numbness, Denies tingling and Denies weakness [facility] Past Medical History Attestation statement: The following information was validated with the patient. Source: old records reviewed and nursing notes reviewed Medical History Atherosclerotic heart disease [place] coronary artery w/angina pectoris BPH (benign prostatic hyperplasia) Chronic kidney disease (CKD) stage G2/A1, mildly decreased glomerular filtration rate (GFR) between 60-89 mL/min/1.73 square meter and albuminuria creatinine ratio less than 30 mg/g Dependence on respirator [ventilator] status Diverticulosis GERD (gastroesophageal reflux disease) Hypothyroid Polyneuropathy Proteinuria PVD (peripheral vascular disease) Type 2 diabetes mellitus Social History Social History Alcohol intake: never Patient Tobacco Use Status: Never used Tobacco Advance Directives: No Advance Directives Information Provided: No Advance Directives on File: No Physical Exam ED Vital Signs: Vital Signs - 24 hr 02/16/23 16:42 Temperature 97.4 F Pulse Rate 86 Respiratory Rate 16 Blood Pressure 143/86 H Pulse Oximetry 96 Oxygen Delivery Method Room Air BMI result Body Mass Index 27.0 Const General: cooperative, healthy appearing, comfortable and no acute distress Orientation/consciousness: patient oriented x3 Limitations: no limitations HENMT Head: Yes normal to inspection Ears: hearing grossly normal bilaterally Eyes General: appearance normal, both eyes and all related structures Pupils: Equal, round and reactive pupils present Neck Neck: Yes normal visual inspection Chest Chest palpation & inspection: normal inspection of the chest Resp Effort & Inspection: normal respiratory effort Auscultation: clear to auscultation bilaterally Cardio Rate: regular rate Rhythm: regular rhythm Peripheral pulses: Peripheral pulses 2+ throughout GI Inspection: Yes normal to inspection Palpation (GI): Soft to palpation and nontender General: Yes no CVA tenderness Back/Spine/Pelvis Back: no CVA tenderness Thoracic/Lumbar Spine: thoracic and lumbar spine normal to inspection Skin General skin exam: no rashes or lesions noted Neuro General: patient oriented x3 and moves all extremities Cranial nerves: Yes Equal, round and reactive pupils present Cognition (Neuro): normal cognition Gait exam (Neuro): Normal gait present Extrem Other: There is slight swelling noted over the right dorsal wrist. There is pain with active and passive range of motion of the wrist. There is no erythema or warmth on exam. Sensation intact Course Course Course Narrative: This is an RME: Additional HPI, ROS, PE not included below will be deferred to primary provider. Patient is a 58 year old male presenting with pain and inflammation of right wrist for 2 weeks with intermittent numbness. Atraumatic. Rates pain an 8/10. PE- benign. neurovascular exam intact. Plan imaging Reevaluation(s) Reevaluation #1: X-ray shows MPRESSION: 1.? Equivocal very subtle cortical irregularity in the ulnar styloid that could represent a nondisplaced fracture, correlate for point tenderness. 2.? Negative ulnar variance variance with mild associated degenerative osteoarthritis of the radiocarpal joint. 3.? Nonspecific soft tissue thickening, slightly more prominent adjacent to the distal ulna. There is tenderness over the ulnar styloid on exam but no reports of trauma or injury. Will place the patient in a splint, recommend Motrin or Tylenol, follow-up with orthopedics outpatient.. Reviewed worrisome signs and symptoms of when to return to the emergency room. Comfortable plan for discharge home. ? Procedures Orthopedic Splinting/Casting Injury #1: Side: right Upper Extremity Injury Location: wrist Upper Extremity Immobilizer: wrist splint Medical Decision Making Medical Decision Making MDM Narrative: 58-year-old male here with atraumatic right wrist pain for several weeks. Has had recent ER visit with reports of negative x-rays which are unavailable for review. Has not followed up with primary Will obtain our own x-rays If negative patient placed in a wrist splint and recommendations for NSAIDs at home and follow-up with primary care Differential Diagnosis Differential Diagnoses: The differential diagnosis associated with the presentation includes [place] tenosynovitis, osteoarthritis, strain, sprain Low concern for septic joint, gout Independent Interpretation I performed an independent interpretation of an: Plain X-Ray Interpretation: I independently reviewed the x-rays your with radiologist report Radiology Impression Discussion of test interpretation with radiology: I have reviewed the radiologist's reading. Radiologist Impression: [address] [address] XRay Report Signed Patient: Francesco Stokes MR#: [id number] : 1965 Acct:[id number] Age/Sex: 58 / M ADM Date: 02/16/23 Loc: HO.ED Attending Dr: Ordering Physician: Belinda Bowens Date of Service: 02/16/23 Procedure(s): XR wrist RT 2V Accession Number(s): [id number] cc: Belinda Bowens~ EXAMINATION: XR WRIST, RIGHT CLINICAL INFORMATION: Pain.? COMPARISON: None available.? TECHNIQUE: Four views of the right wrist. FINDINGS: Equivocal very subtle cortical irregularity in the ulnar styloid. No subluxation. Negative ulnar variance with mild degenerative osteoarthritis of the radiocarpal joint. No erosions or chondrocalcinosis. Scattered atherosclerotic disease. Diffuse nonspecific soft tissue thickening, slightly more prominent adjacent to the distal ulna.? XR/XR wrist RT 2V IMPRESSION: 1.? Equivocal very subtle cortical irregularity in the ulnar styloid that could represent a nondisplaced fracture, correlate for point tenderness. 2.? Negative ulnar variance variance with mild associated degenerative osteoarthritis of the radiocarpal joint. 3.? Nonspecific soft tissue thickening, slightly more prominent adjacent to the distal ulna. Discharge Plan Discharge Clinical Impression: Osteoarthritis of right wrist, Right wrist pain Patient Disposition: Home, Self-Care Instructions: Osteoarthritis (ED) Additional Instructions: Your x-ray shows that there may be a small fracture in the wrist. Use the splint for comfort. Call orthopedics for follow-up Heat or ice Gentle streching Take motrin or tylenol for pain as needed Nugent radiograf?a muestra que puede feliciano savanna zacarias?a fractura en la mu?eca. Use la f?sonal para mayor comodidad. Llamar a ortopedia para seguimiento calor o hielo Estiramiento suave [place] motrin o tylenol para el dolor seg?n sea necesario Prescriptions: No Action doxycycline monohydrate 100 mg capsule 100 mg PO BID Qty: 20 0RF cephalexin [Keflex] 500 mg capsule 500 mg PO BID Qty: 20 0RF polyethylene glycol 3350 [Miralax] 17 gram/dose powder 17 g PO DAILY Qty: 119 0RF skgopzlxsi-nyeghbirldzzn-rvpq [Fioricet] 50-300-40 mg capsule 1 cap PO Q6H PRN (Reason: headache) Qty: 20 0RF Referrals: [facility] [place] [facility] [Provider Group] - 1 week Ayla Gutierrez NP [Primary Care Provider] - 1 week Print Language: Estonian
[2023-02-16 16:42] VITALS: BP 143/86; PULSE 86; RESP 16; TEMP 36.3; O2SAT 96; BMI 27.0
== END 2023-02-16 18:35 | disposition home or self-care (01) ==
PROVIDERS: Emergency Provider Emergency Medicine; PCP Nurse Practitioner Family
DX: M19.031 Primary osteoarthritis, right wrist (principal); M25.531 Pain in right wrist
CPT/HCPCS: 73100; 99282; 99283

== ENCOUNTER → 2023-03-07 10:09 | Outpatient (BNVA) | payer OTHER, SELFPAY | PROVIDERS: PCP Nurse Practitioner Family; Visit Provider Physician Assistant | DX: M77.8 Other enthesopathies, not elsewhere classified (principal); G56.01 Carpal tunnel syndrome, right upper limb | CPT/HCPCS: 99202 ==

== ENCOUNTER 2023-10-13 16:41 | Emergency (ER) | payer OTHER, SELFPAY ==
[2023-10-13 16:46] VITALS: BP 184/98; PULSE 98; RESP 16; TEMP 36.6; O2SAT 98; BMI 25.1
--- NOTE | 2023-10-13 16:56 | ED_ITS ---
HPI - General Adult General Chief complaint: Skin/Abscess/Foreign Body Stated complaint: rt foot toes wound/diabetes Time Seen by Provider: 10/13/23 16:54 Source: patient Mode of arrival: ambulatory Limitations: no limitations History of Present Illness HPI narrative: 58-year-old male history of diabetes and DM neuropathy presents to ED for blisters 3rd, 4th, and 5th toes since yesterday without any redness, pus discharge, foul odor, or recent trauma. Patient denies any hot items falling onto foot. Patient denies foot being in the cold. Related Data Home Medications Medication Instructions Recorded Confirmed amitriptyline 25 mg tablet 25 mg PO BEDTIME 03/07/23 amlodipine 10 mg tablet 10 mg PO DAILY 03/07/23 aspirin 81 mg tablet,delayed 81 mg PO DAILY 03/07/23 release atorvastatin 40 mg tablet 40 mg PO DAILY 03/07/23 cholecalciferol (vitamin D3) 25 25 mcg PO DAILY 03/07/23 mcg (1,000 unit) tablet (Vitamin D3) duloxetine 60 mg capsule,delayed 60 mg PO DAILY 03/07/23 release empagliflozin 12.5 mg-metformin ER tab PO 03/07/23 1,000 mg tablet,extended rel 24 hr (Synjardy XR) insulin lispro 100 unit/mL subcut 03/07/23 subcutaneous solution omeprazole 20 mg capsule,delayed 20 mg PO DAILY 03/07/23 release oxybutynin chloride 5 mg 5 mg PO DAILY 03/07/23 tablet,extended release 24 hr Previous Rx's Medication Instructions Recorded polyethylene glycol 3350 17 17 g PO DAILY #119 grams 07/24/21 gram/dose oral powder (Miralax) [id number]-qnfqnxdsfdjey-jbogvdtw 1 cap PO Q6H PRN headache #20 caps 01/02/22 50 mg-300 mg-40 mg capsule (Fioricet) cephalexin 500 mg capsule 500 mg PO Q12H 7 days #14 caps 10/13/23 Allergies Allergy/AdvReac Type Severity Reaction Status Date / Time No Known Allergies Allergy Verified 10/13/23 16:57 [No Known Allergies*] Review of Systems 2 Review of Systems: Blisters on right foot Yes all other systems are reviewed and are negative PMFSH Past Medical History Medical History 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 BPH (benign prostatic hyperplasia) Chronic kidney disease (CKD) stage G2/A1, mildly decreased glomerular filtration rate (GFR) between 60-89 mL/min/1.73 square meter and albuminuria creatinine ratio less than 30 mg/g Dependence on respirator [ventilator] status Diverticulosis GERD (gastroesophageal reflux disease) Hypothyroid Polyneuropathy Proteinuria PVD (peripheral vascular disease) Type 2 diabetes mellitus Social History Social History (Updated 03/07/23 @ 10:29 by NAJMA Weeks) Alcohol intake: never Patient Tobacco Use Status: Never used Tobacco Smoked in Last 30 Days: No Use of substances other than those prescribed or required for medical reasons: No Advance Directives: No Advance Directives Information Provided: Yes Current occupational status: disabled 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 Physical Exam ED Vital Signs: Vital Signs - 24 hr 10/13/23 16:46 Temperature 98 F Pulse Rate 98 Respiratory Rate 16 Blood Pressure 184/98 H Pulse Oximetry 98 Oxygen Delivery Method Room Air BMI result Body Mass Index 25.1 Const General: cooperative, healthy appearing, comfortable, no acute distress, well developed, alert, awake and Physically active Orientation/consciousness: oriented to person, oriented to place, oriented to time and patient oriented x3 HENMT Head: Yes normal to inspection, Yes No palpable skull fracture present, Yes normocephalic, Yes atraumatic and No abrasion Eyes General: appearance normal, both eyes and all related structures Neck Neck: Yes normal visual inspection, Yes full ROM, Yes no lymphadenopathy, Yes no meningeal signs, Yes trachea midline, Yes supple, No anterior neck swelling and No tender Chest Chest palpation & inspection: normal inspection of the chest and normal palpation of entire chest wall Resp Effort & Inspection: normal respiratory effort and able to speak in complete sentences Auscultation: clear to auscultation bilaterally Cardio Jugular venous distension: no JVD Heart sounds: S1 normal heart sound present and S2 normal heart sound present GI Inspection: Yes normal to inspection Palpation (GI): Soft to palpation, not firm, nontender, no guarding and not rigid General: Yes no CVA tenderness Back/Spine/Pelvis Back: no CVA tenderness and No back tenderness Skin General skin exam: no rashes or lesions noted, elasticity normal and turgor normal Neuro General: oriented to person, oriented to place, oriented to time, patient oriented x3, gait normal, tone normal, moves all extremities, Normal light touch and pain sensation, no meningeal signs, no focal motor deficits, CN's II-XI intact bilaterally and normal sensation to monofilament Extrem Other: motor/neuro /vascular exam intact. negative for any erythema, pus discharge, foul odor, open wounds, bluish/black discloration, neck swelling, red streaks, calf pain, open ulcers, or any deformitites. Motor/neuro/ vascular exam intact. Psych Appearance: grossly normal, well kempt and not disheveled Course Course Course Narrative: RME: 58 yold male presents to the ED for right toe blisters on 3rd 4th and 5th toe. No open ulcers, wounds, pus discharge, swelling, redness, crepitus, ecchymosis, fever or chills. Medical Decision Making Medical Decision Making [facility] Narrative: 58-year-old male presents With pmh of DM and HTN to the ED for blisters on right foot without any trauma. Negative for any signs of any infection. Patient denies any hot liquid falling onto foot or being in the cold. Physical exam negative for signs of cellulitis, DVT, arterial occlusion, necrotizing fasciitis, fracture, or dislocation. Blisters will remain and not be incised due to patient's history of diabetes. Patient will be discharged antibiotics prevent infection. Patient informed to follow-up with oncology admin Differential Diagnosis Differential Diagnoses: The differential diagnosis associated with the presentation includes ( cellulitis, diabetic foot, blister, burn) Independent Historian Clinical information obtained from an independent historian. History obtained from or confirmed by: Other ( patient) External Record Review External record reviewed: Other ( prior visits) Prescription Management I considered prescription management with: Antibiotic Discharge Plan Discharge Clinical Impression: Blister Patient Disposition: Home, Self-Care Instructions: Kaitlyn (ED) Additional Instructions: Recomendar seguimiento con queen pod?logo para evaluaci?n de ampollas en pie. Regrese al servicio de urgencias de inmediato si presenta enrojecimiento, hinchaz?n, secreci?n de pus, mal olor, heridas abiertas, decoloraci?n sandy azulada, fiebre, escalofr?os, emre bruno, hinchaz?n del nellie, dolor en la pantorrilla, calor, frialdad de las extremidades o cualquier otro s?ntoma preocupante. Debido a antecedentes de diabetes no abrir? las ampollas. Le enzo?n de mariela antibi?ticos para prevenir infecciones. Recommend follow-up with your oncology admin for evaluation on blisters on foot. Return to the ED immediately for any redness, swelling, pus discharge, foul odor, open wounds, bluish black discoloration, fever, chills, red streaks, neck swelling, calf pain, hotness, coldness of extremity, or any other concerning symptoms. Due to history of diabetes you will not open the blisters. You will be discharged antibiotics to prevent infection Prescriptions: New cephalexin 500 mg capsule 500 mg PO Q12H 7 Days Qty: 14 0RF No Action polyethylene glycol 3350 [Miralax] 17 gram/dose powder 17 g PO DAILY Qty: 119 0RF dnvocpanbl-tklridyotsjkj-fgib [Fioricet] 50-300-40 mg capsule 1 cap PO Q6H PRN (Reason: headache) Qty: 20 0RF Synjardy XR 12.5-1,000 mg tablet, IR - ER, biphasic 24hr PO duloxetine 60 mg capsule,delayed release(DR/EC) 60 mg PO DAILY insulin lispro 100 unit/mL solution subcut oxybutynin chloride 5 mg tablet extended release 24hr 5 mg PO DAILY amitriptyline 25 mg tablet 25 mg PO BEDTIME omeprazole 20 mg capsule,delayed release(DR/EC) 20 mg PO DAILY aspirin 81 mg tablet,delayed release (DR/EC) 81 mg PO DAILY atorvastatin 40 mg tablet 40 mg PO DAILY amlodipine 10 mg tablet 10 mg PO DAILY cholecalciferol (vitamin D3) [Vitamin D3] 25 mcg (1,000 unit) tablet 25 mcg PO DAILY Discharge Date/Time: 10/13/23 17:32 Print Language: B[place]udian
--- NOTE | 2023-10-13 17:27 | PC.NURSE ---
solo antoine saw pt- aware elevated bp- discharging from triage.
== END 2023-10-13 17:32 | disposition home or self-care (01) ==
PROVIDERS: Emergency Provider Emergency Medicine; PCP Nurse Practitioner Family
DX: S90.821A Blister (nonthermal), right foot, initial encounter (principal); E11.9 Type 2 diabetes mellitus without complications; X58.XXXA Exposure to other specified factors, initial encounter; Y93.9 Activity, unspecified; Y92.9 Unspecified place or not applicable; Y99.8 Other external cause status; Z79.4 Long term (current) use of insulin
CPT/HCPCS: 99284